=== PATIENT | male | born 2000 | race Caucasian/White ===

== ENCOUNTER 2024-06-12 12:44 | Emergency (ER) | payer BC ==
[2024-06-12 13:36] LABS: #Basophils 0.05 10x3/uL (0.0-0.2); %Basophils 0.7 % (0.0-1.0); %Eosinophils 0.4 % (0.0-10.0); %Lymphocytes 10.2 % (21.0-51.0); %Monocytes 19.4 % (0.0-10.0); %Neutrophils 68.6 % (42.0-75.0); Hematocrit 45.6 % (42.0-52.0); Hemoglobin 16.6 g/dL (14.0-18.0); Mean Corpuscular HGB CONC 36.4 g/dL (32.0-36.0); Mean Corpuscular Hemoglobin 31.3 pg (27.0-31.0); Mean Platelet Volume 9.4 fL (7.4-10.4); Platelet Count 141 10x3/uL (130-400)
[2024-06-12 14:05] LABS: ALT (SGPT) 104 U/L (8-55); AST (SGOT) 44 U/L (5-34); Albumin 4.3 g/dL (3.5-5.0); Alkaline Phosphatase 74 U/L (40-110); Anion Gap 15 mmol/L (10-20); BUN (Urea Nitrogen) 9 mg/dL (8.9-20.6); Bilirubin, Total 0.8 mg/dL (0.2-1.2); Calc. Creatinine Clearance 0 mL/min (70-130); Calcium 8.7 mg/dL (7.8-10.44); Carbon Dioxide 25 mmol/L (22-29); Chloride 102 mmol/L (98-107); Estimated GFR 111; Globulin 2.8 g/dL (2.4-3.5); Glucose 96 mg/dL (70-105); Potassium 3.9 mmol/L (3.5-5.1); Protein, Total 7.1 g/dL (6.0-8.3); Sodium 138 mmol/L (136-145)
[2024-06-12 14:06] LABS: Troponin I Less than 0.010 ng/mL (< 0.028)
== END 2024-06-12 15:43 | disposition home or self-care (01) ==
LOC: ERS 12:44
DX: R55 Syncope and collapse (principal); S00.03XA Contusion of scalp, initial encounter; R07.9 Chest pain, unspecified; W19.XXXA Unspecified fall, initial encounter; Z55.6 Problems related to health literacy
CPT/HCPCS: 36415; 70450; 71045; 80053; 84484; 85025; 85379; 93005